=== PATIENT | male | born 1960 | race Caucasian/White ===

== ENCOUNTER → 2020-01-07 08:52 | Outpatient (CLI) | payer OTHER, SELFPAY ==
[2020-01-08 08:53] LABS: COVID19 Sendout Not Detected (Not Detect)
== END ==
PROVIDERS: PCP Family Medicine; Visit Provider Nurse Practitioner
DX: Z01.812 Encounter for preprocedural laboratory examination (principal)
CPT/HCPCS: 87635

== ENCOUNTER 2020-01-10 07:41 | Day surgery (SDC) | payer OTHER, SELFPAY ==
[2020-01-10] VITALS (8 sets, daily range): BP systolic 111–130; BP diastolic 75–81; PULSE 61–86; RESP 8–20; TEMP 36.2–36.6; O2SAT 91–99; BMI 25.1
--- NOTE | 2020-01-10 | PATH_ITS ---
[facility] Accession Number: [id number] . 01 Material submitted: . colon - COLON BIOPSY AT 20CM X2 . 02 Diagnosis: Colon at 20 cm, Biopsy: Fragments of hyperplastic polyp and fragments of colonic mucosa with prominent benign lymphoid aggregates (two polyps removed). MRV 01/11/2020 1133 Local . 02 Electronically signed: . Florentino Dave MD, PhD, Pathologist NPI- [id number] . 01 Gross description: . COLON BIOPSY AT 20CM X2: Received in formalin are multiple fragment(s) of spencer, soft tissue measuring 0.5 x 0.5 x 0.2 cm in aggregate submitted entirely in 1 cassette(s) /QBJ 01/10/2020 2231 Local . 02 Pathologist provided ICD-10: K63.5 . 02 CPT . 677689 Performed at: 01 [facility] [address], [place], [place] [id number] MD Shailesh Early MD Phone: [phone] Performed at: 02 [facility] [address] [place], [place] [id number] MD Bouchra Vang MD Phone: [phone]
[2020-01-10] MEDS: LACTATED RINGERS 1,000 ML 100 ML IV (08:10)
--- NOTE | 2020-01-10 08:38 | PM.PREOP ---
Pre-operative Note COVID-19 COVID-19 status: Negative Result date/Date tested (Pos, Neg/Pending): 01/07/20 Interval Note History & Physical reviewed/Exam performed by Physician: Yes Changes to H&P: No ASA Class (for procedural sedation): I
[2020-01-10] MEDS: MIDAZOLAM 5 MG/5 ML VIAL IV (09:14)
[2020-01-10] MEDS: fentaNYL 250 MCG/5 ML INJ IV (09:14)
--- NOTE | 2020-01-10 09:14 | PM.OP.ENDO ---
Operative Date/Time/Diagnoses Date of procedure: 01/10/20 Time of procedure: 09:14 Pre-op diagnosis: Screening colonoscopy 10 years since his last exam. Rectal bleeding. Post-op diagnosis: same (Internal hemorrhoids most likely the source of his bleeding.) Procedure & Clinicians Study performed: Colonoscopy with cold biopsy. Hemorrhoid banding 2 columns of hemorrhoids. Same procedure as scheduled: Yes Indications: Rectal bleeding. Due for screening colonoscopy. Surgeon: Hiram Camejo Procedure Notes SCOAP/Timeout: Perform Procedure in detail: The patient was placed in the left lateral decubitus position and underwent IV sedation directed by the surgeon consisting of fentanyl and Versed. Digital exam was remarkable for a very tight anus and a lot of resistance to insertion of a finger. The patient also had a visible ulceration on a just visible internal hemorrhoid. Topical lidocaine was applied.. The scope was inserted and advanced through the rectum into the sigmoid, descending, transverse, and ascending colon. Diverticulosis of the sigmoid was noted.. The cecum was reached identified by the ileocecal valve and the appendiceal opening. The ileocecal valve was successfully cannulated. The terminal ileum was normal in appearance. The scope was gradually brought out. Two tiny Polyps were found at 20 cm from the anal verge. The scope ultimately was retroflexed in the rectum. The appearance was remarkable for internal hemorrhoids. The scope was removed and the patient tolerated the procedure well. Prep was very good. An anoscope was inserted and circumferential exam perform. The patient had a lot of resistance to inserting the anoscope even though he was rather well sedated. I banded 2 columns of hemorrhoids which included the 1 with ulceration. Anoscope was removed. Scope withdrawal time: 6-1/2 minutes(9 total) Sedation minutes: 27 Findings: diverticulosis, internal hemorrhoids and polyp Specimen(s): other (Polyps) Complications: none Post-procedure Recommendations: Colonscopy in 5 years Follow up: weeks (Two) Disposition: PACU
[2020-01-10] MEDS: LIDOCAINE JELLY 2% 5 ML 1 APPLIC TOP (09:15)
== END 2020-01-10 10:05 | disposition home or self-care (01) ==
PROVIDERS: PCP Family Medicine; Referring Provider Specialist; Visit Provider Specialist
PROC: 0DJD8ZZ Inspection of Lower Intestinal Tract, Via Natural or Artificial Opening Endoscopic (ICD-10-PCS; CPT 45378; principal; 2020-01-10 08:45)
DX: K64.4 Residual hemorrhoidal skin tags (principal); K57.30 Diverticulosis of large intestine without perforation or abscess without bleeding; K63.5 Polyp of colon
CPT/HCPCS: 45398; 45380; 99152; 99153; J2250; J3010

== ENCOUNTER 2024-10-18 09:26 | Day surgery (SDC) | payer OTHER, SELFPAY ==
--- NOTE | 2024-10-18 | PATH_ITS ---
[facility] Accession Number: [id number] No. of containers..01 Tissue . 01 Material submitted: . colon - ASCENDING POLYP . 01 Diagnosis: ASCENDING COLON: Tubular adenoma. MRV 10/19/2024 1535 Local . 01 Electronically signed: . Monie Shannon DO, Pathologist NPI- [id number] . 01 Gross description: . ASCENDING POLYP: Received in formalin is 1 fragment(s) of spencer, soft tissue measuring 1.2 x 0.4 x 0.4 cm submitted entirely in 1 cassette(s) /ABDULLAHI 10/18/2024 2334 Local . 01 Pathologist provided ICD-10: Z12.11 . 01 CPT . 750887 Specimen Comment: A courtesy copy of this report has been sent to [phone] Performed at: [address] [id number] MD Shailesh Early MD Phone: [phone]
[2024-10-18 11:29] VITALS: BP 155/93; PULSE 79; RESP 16; TEMP 36.1; O2SAT 97
[2024-10-18] MEDS: LACTATED RINGERS 1,000 ML 42 ML IV (11:39)
[2024-10-18] MEDS: ACETAMINOPHEN 325 MG TABLET 975 MG PO (11:39)
--- NOTE | 2024-10-18 12:15 | PM.PREOP ---
Pre-operative Note COVID-19 COVID-19 status: Not tested Interval Note History & Physical reviewed/Exam performed by Physician: Yes Changes to H&P: No ASA Class (for procedural sedation): II
--- NOTE | 2024-10-18 12:39 | P.OP.COLON_ITS ---
Operative Date/Time/Diagnoses Date of procedure: 10/18/24 Time of procedure: 12:39 Pre-op diagnosis: Rectal bleeding and hemorrhoids Post-op diagnosis: same Procedure & Clinicians Study performed: Colonoscopy Rubber-band ligation of internal hemorrhoids Same procedure as scheduled: Yes Surgeon: Carlos Walton Procedure Notes Procedure in detail: Surgeon: Carlos Walton MD Anesthesia: Bouchra Maier [employer] Procedure: The patient was brought to the endoscopy suite, placed in left lateral decubitus position. The patient was connected to monitoring devices. A time-out was performed. Sedation was administered. Once the patient was adequately sedated, a digital rectal exam was performed and was normal. The scope was then inserted and advanced to the cecum where the appendiceal orifice was identified and photographed. The scope was then slowly withdrawn over greater than 6 minutes. The mucosa was thoroughly inspected. There was a small polyp in the ascending colon removed with a cold snare. The scope was retroflexed in the rectum. Internal hemorrhoids were noted. The scope was straightened and removed. We then perform rubber-band ligation of internal hemorrhoids in the right lateral and left lateral columns. The patient was awakened and brought to recovery. Scope withdrawal time: 8 minutes Sedation time: 11 minutes EBL: 5 mL Findings: Small ascending colon polyp and internal hemorrhoids Post-procedure Disposition: PACU
[2024-10-18 12:41] VITALS: BP 106/73; PULSE 66; RESP 12; TEMP 36.2; O2SAT 95
[2024-10-18 12:46] VITALS: BP 111/83; PULSE 66; RESP 15; TEMP 36.2; O2SAT 95
[2024-10-18 12:54] VITALS: BP 113/77; PULSE 66; RESP 21; TEMP 36.3; O2SAT 95
== END 2024-10-18 13:28 | disposition home or self-care (01) ==
PROVIDERS: PCP Family Medicine; Referring Provider Surgery; Visit Provider Surgery
PROC: 0DJD8ZZ Inspection of Lower Intestinal Tract, Via Natural or Artificial Opening Endoscopic (ICD-10-PCS; CPT 45378; principal; 2024-10-18 11:30)
DX: K62.5 Hemorrhage of anus and rectum (principal); K64.8 Other hemorrhoids; D12.2 Benign neoplasm of ascending colon
CPT/HCPCS: 45385; 46221; J2704